=== PATIENT | female | born 1935 | race Caucasian/White ===

== ENCOUNTER 2017-10-12 12:14 | Inpatient (IN) | payer OTHER ==
[~2017-10-12] VITALS: Ht 165.1 cm; Wt 67.9 kg
[~2017-10-12 12:14] MED LIST: ASCO500T11 PO; ASPI-498 OR; ATOR20TA50 PO; CIPR-187 PO; FURO20TA3 PO
[2017-10-12 13:15] LABS: Red Cell Distribution Width 18.2 % (11.8-14.3)
[2017-10-12 13:24] LABS: Hematocrit 40.1 % (36.0-46.0); Hemoglobin 12.9 g/dL (12.2-16.2); Mean Corpuscular Hemoglobin 26.9 pg (28.0-32.0); Mean Corpuscular Hgb Conc. 32.1 g/dL (32.0-36.0); Mean Corpuscular Volume 83.7 fL (80.0-100.0); Platelet Count (auto) 307 10^3/uL (140-450); Red Blood Cells 4.79 10^6/uL (4.0-5.20); White Blood Cell 16.7 10^3/uL (4.4-10.8)
[2017-10-12 13:32] LABS: Alanine Aminotransferase 24 U/L (13-56); Albumin 2.6 g/dL (3.4-5.0); Anion Gap 11 (5-15); Aspartate Aminotransferase 30 U/L (15-37); BUN/Creatinine Ratio 30.6; Blood Urea Nitrogen 34 mg/dL (7-18); Calcium 8.7 mg/dL (8.5-10.1); Carbon Dioxide 26 mmol/L (21-32); Chloride 103 mmol/L (98-107); GFR African American 60 mL/min; GFR Non-African American 50 mL/min; Glucose 122 mg/dL (74-106); Potassium 3.1 mmol/L (3.5-5.1); Sodium 140 mmol/L (136-145)
[2017-10-12 13:34] LABS: Lactic Acid w/Reflex 2.4 mmol/L (0.4-2.0)
[2017-10-12 13:37] LABS: Alkaline Phosphatase 96 U/L (45-117); Total Protein 7.7 g/dL (6.4-8.2)
[2017-10-12 13:50] LABS: Lymphocytes % (manual) 0 (10.0-50.0)
[2017-10-12 13:51] LABS: Basophils % (manual) 0 (0.0-2.0); Blast Cells 0; Eosinophils % (manual) 0 (0-7); Metamyelocytes % 0; Myelocytes % 0; Promyelocytes % 0; Reactive Lymphocytes 0
[2017-10-12] MEDS ORDERED: AZITHROMYCIN 500MG/ 250ML 250 ML IV ONE (14:30)
[2017-10-12] MEDS ORDERED: cefTRIAXone 1GM/10ml IVPUSH 10 ML IV ONE (14:30)
[2017-10-12 14:33] LABS: Band Neutrophils % (manual) 4; Monocytes % (manual) 1 (0-12)
[2017-10-12] MEDS ORDERED: MORPHINE SULF(PF) 0.5MG/ML 10ML VIAL IV PRN (14:45)
[2017-10-12] MEDS ORDERED: LORazepam 0.5 MG TAB PO PRN (14:45)
[2017-10-12] MEDS ORDERED: ALBUTEROL SULF 2.5 MG/0.5ML(0.5%) NEB SOLN NEB PRN (14:45)
[2017-10-12] MEDS ORDERED: MORPHINE SULFATE 8mg/ml INJ SDV IV PRN (14:45)
[2017-10-12] MEDS ORDERED: NITROGLYCERIN 0.4 MG SL TAB SL PRN (14:45)
[2017-10-12] MEDS ORDERED: TEMAZEPAM 15 MG CAP PO PRN (14:45)
[2017-10-12] MEDS ORDERED: PROMETHAZINE HCL 25 MG/ML 1ML IV PRN (14:45)
[2017-10-12] MEDS ORDERED: LACTULOSE 20Gm/30ML SOLN PO PRN (14:45)
[2017-10-12] MEDS ORDERED: ACETAMINOPHEN 500 MG TAB PO PRN (14:45)
[2017-10-12] MEDS: FUROSEMIDE 40 MG/4 ML VIAL IV SCH (15:18)
[2017-10-12] MEDS: CARVEDILOL 3.125 MG TAB PO SCH ×2 (15:20→21:49)
[2017-10-12] MEDS: POTASSIUM CHL 20 Meq TABLET PO SCH (15:20)
[2017-10-12] MEDS: ENALAPRIL MALEATE 2.5 MG TAB PO SCH (15:29)
[2017-10-12 16:20] LABS: INR 1.08 (0.9-1.15); Prothrombin Time 11.5 sec (9.27-12.13)
[2017-10-12 16:42] LABS: Urine Bacteria FEW /hpf (None Seen); Urine Blood Negative /uL (Negative); Urine Specific Gravity 1.016 (1.001-1.035); Urine WBC 11 /hpf (0 - 5)
[2017-10-12] MEDS: IPRATROPIUM BROM 0.5 MG/2.5ML INH SOL NEB SCH (19:02)
[2017-10-12] MEDS: ALBUTEROL SULF 2.5 MG/0.5ML(0.5%) NEB SOLN NEB SCH (19:02)
[2017-10-12 20:00] VITALS: BP 128/52
[2017-10-12] MEDS: ATORVASTATIN 20 MG TAB PO SCH (21:46)
[2017-10-12 22:12] VITALS: BP 136/65
[2017-10-12 22:41] VITALS: BP 128/52
[2017-10-13] MEDS: IPRATROPIUM BROM 0.5 MG/2.5ML INH SOL NEB SCH ×4 (00:17→19:33)
[2017-10-13] MEDS: ALBUTEROL SULF 2.5 MG/0.5ML(0.5%) NEB SOLN NEB SCH ×4 (00:18→19:33)
[2017-10-13 04:55] VITALS: BP 109/55
[2017-10-13 07:45] LABS: Basophils # (auto) 0 uL; Eosinophils # (auto) 0.2 uL; Lymphocytes # (auto) 0.7 uL; Neutrophils % (auto) 86.2 % (37.0-80.0)
[2017-10-13 07:48] LABS: Basophils % (auto) 0.2 % (0.0-2.0); Eosinophils % (auto) 1.5 % (0.0-7.0); Hematocrit 36.7 % (36.0-46.0); Lymphocytes % (auto) 6.6 % (10.0-50.0); Mean Corpuscular Hemoglobin 26.2 pg (28.0-32.0); Mean Corpuscular Hgb Conc. 32.6 g/dL (32.0-36.0); Mean Corpuscular Volume 80.4 fL (80.0-100.0); Monocytes # (auto) 0.6 uL; Monocytes % (auto) 5.5 % (0.0-12.0); Neutrophils # (auto) 9.4 uL; Platelet Count (auto) 332 10^3/uL (140-450); Red Blood Cells 4.56 10^6/uL (4.0-5.20); Red Cell Distribution Width 17.5 % (11.8-14.3)
[2017-10-13 08:18] LABS: Albumin 2.3 g/dL (3.4-5.0); BUN/Creatinine Ratio 35.8; Bilirubin, Total 0.8 mg/dL (0.2-1.0); Calcium 8.7 mg/dL (8.5-10.1); Potassium 3.6 mmol/L (3.5-5.1); Total Protein 6.9 g/dL (6.4-8.2)
[2017-10-13] MEDS: cefTRIAXone 1GM/10ml IVPUSH 10 ML IV SCH (09:00)
[2017-10-13 09:04] VITALS: BP 98/50
[2017-10-13] MEDS: AZITHROMYCIN 500MG/ 250ML 250 ML IV SCH (10:00)
[2017-10-13] MEDS: CARVEDILOL 3.125 MG TAB PO SCH ×2 (10:00→22:42)
[2017-10-13] MEDS: POTASSIUM CHL 20 Meq TABLET PO SCH (10:00)
[2017-10-13] MEDS: FUROSEMIDE 40 MG/4 ML VIAL IV SCH (10:00)
[2017-10-13] MEDS: PANTOPRAZOLE 40 MG TAB PO SCH (10:00)
[2017-10-13] MEDS: ASCORBIC ACID 500 MG TAB PO SCH (10:00)
[2017-10-13] MEDS: ENALAPRIL MALEATE 2.5 MG TAB PO SCH (10:00)
[2017-10-13 13:14] VITALS: BP 109/50
[2017-10-13] MEDS: guaiFENesin 200 MG/10 ML UD GT PRN (14:34)
[2017-10-13 17:56] VITALS: BP 120/53
[2017-10-13 22:00] VITALS: BP 114/51
[2017-10-13] MEDS: ATORVASTATIN 20 MG TAB PO SCH (22:41)
[2017-10-14] MEDS: IPRATROPIUM BROM 0.5 MG/2.5ML INH SOL NEB SCH ×4 (01:14→18:24)
[2017-10-14] MEDS: ALBUTEROL SULF 2.5 MG/0.5ML(0.5%) NEB SOLN NEB SCH ×4 (01:14→18:23)
[2017-10-14 06:43] VITALS: BP 130/50
[2017-10-14 08:03] LABS: Basophils # (auto) 0 uL; Eosinophils # (auto) 0.3 uL
[2017-10-14 08:07] LABS: Basophils % (auto) 0.4 % (0.0-2.0); Eosinophils % (auto) 3.9 % (0.0-7.0); Hematocrit 36.2 % (36.0-46.0); Lymphocytes # (auto) 0.9 uL; Lymphocytes % (auto) 10.6 % (10.0-50.0); Mean Corpuscular Hemoglobin 26.7 pg (28.0-32.0); Mean Corpuscular Volume 80.8 fL (80.0-100.0); Monocytes # (auto) 0.7 uL; Monocytes % (auto) 8.4 % (0.0-12.0); Neutrophils # (auto) 6.5 uL; Neutrophils % (auto) 76.7 % (37.0-80.0); Platelet Count (auto) 311 10^3/uL (140-450); Red Blood Cells 4.48 10^6/uL (4.0-5.20); Red Cell Distribution Width 17.5 % (11.8-14.3); White Blood Cell 8.4 10^3/uL (4.4-10.8)
[2017-10-14 08:23] LABS: BUN/Creatinine Ratio 31.3; Calcium 8.5 mg/dL (8.5-10.1); Magnesium 2.7 mg/dL (1.6-2.6); Potassium 4.3 mmol/L (3.5-5.1)
[2017-10-14 09:00] VITALS: BP 123/62
[2017-10-14] MEDS: cefTRIAXone 1GM/10ml IVPUSH 10 ML IV SCH (09:51)
[2017-10-14] MEDS: POTASSIUM CHL 20 Meq TABLET PO SCH (11:58)
[2017-10-14] MEDS: CARVEDILOL 3.125 MG TAB PO SCH ×3 (11:58→22:34)
[2017-10-14] MEDS: FUROSEMIDE 40 MG/4 ML VIAL IV SCH (11:58)
[2017-10-14] MEDS: AZITHROMYCIN 500MG/ 250ML 250 ML IV SCH (11:58)
[2017-10-14] MEDS: ASCORBIC ACID 500 MG TAB PO SCH (11:59)
[2017-10-14] MEDS: ENALAPRIL MALEATE 2.5 MG TAB PO SCH (11:59)
[2017-10-14] MEDS: PANTOPRAZOLE 40 MG TAB PO SCH (11:59)
[2017-10-14 13:00] VITALS: BP 116/54
[2017-10-14] MEDS ORDERED: ENOXAPARIN SOD 40 MG/0.4 ML SYRINGE SC SCH (14:15)
[2017-10-14 17:00] VITALS: BP 121/51
[2017-10-14 22:02] VITALS: BP 139/64
[2017-10-14] MEDS: ATORVASTATIN 20 MG TAB PO SCH (22:33)
[2017-10-15] MEDS: IPRATROPIUM BROM 0.5 MG/2.5ML INH SOL NEB SCH ×5 (00:15→23:11)
[2017-10-15] MEDS: ALBUTEROL SULF 2.5 MG/0.5ML(0.5%) NEB SOLN NEB SCH ×5 (00:15→23:11)
[2017-10-15 05:09] VITALS: BP 131/58
[2017-10-15 08:29] VITALS: BP 129/66
[2017-10-15] MEDS: CARVEDILOL 3.125 MG TAB PO SCH ×2 (10:00→22:11)
[2017-10-15] MEDS: ASCORBIC ACID 500 MG TAB PO SCH (11:23)
[2017-10-15] MEDS: FUROSEMIDE 40 MG/4 ML VIAL IV SCH (11:23)
[2017-10-15] MEDS: PANTOPRAZOLE 40 MG TAB PO SCH (11:23)
[2017-10-15] MEDS: cefTRIAXone 1GM/10ml IVPUSH 10 ML IV SCH (11:23)
[2017-10-15] MEDS: ENOXAPARIN SOD 40 MG/0.4 ML SYRINGE SC SCH (11:25)
[2017-10-15] MEDS: ENALAPRIL MALEATE 2.5 MG TAB PO SCH (11:25)
[2017-10-15] MEDS: POTASSIUM CHL 20 Meq TABLET PO SCH (11:25)
[2017-10-15] MEDS: AZITHROMYCIN 500MG/ 250ML 250 ML IV SCH (11:26)
[2017-10-15 11:56] VITALS: BP 126/66
[2017-10-15 17:10] VITALS: BP 120/69
[2017-10-15 21:33] VITALS: BP 120/69
[2017-10-15 21:48] VITALS: BP 110/57
[2017-10-15] MEDS: ATORVASTATIN 20 MG TAB PO SCH (22:11)
[2017-10-16 05:31] VITALS: BP 111/65
[2017-10-16] MEDS: ALBUTEROL SULF 2.5 MG/0.5ML(0.5%) NEB SOLN NEB SCH ×4 (07:04→18:51)
[2017-10-16] MEDS: IPRATROPIUM BROM 0.5 MG/2.5ML INH SOL NEB SCH ×4 (07:04→18:51)
[2017-10-16 07:20] LABS: Partial Thromboplastin Time 26.1 sec (23.78-33.04); Prothrombin Time 10.7 sec (9.27-12.13)
[2017-10-16] MEDS ORDERED: ADENOSINE 52 MG in GIVE UN-DILUTED 0 ML IV ONE (08:45)
[2017-10-16 09:00] VITALS: BP 117/55
[2017-10-16 09:13] VITALS: BP 120/51
[2017-10-16] MEDS: ENOXAPARIN SOD 40 MG/0.4 ML SYRINGE SC SCH (10:00)
[2017-10-16] MEDS: cefTRIAXone 1GM/10ml IVPUSH 10 ML IV SCH (10:55)
[2017-10-16] MEDS: AZITHROMYCIN 500MG/ 250ML 250 ML IV SCH (10:56)
[2017-10-16] MEDS: POTASSIUM CHL 20 Meq TABLET PO SCH (10:56)
[2017-10-16] MEDS: FUROSEMIDE 40 MG/4 ML VIAL IV SCH (10:56)
[2017-10-16] MEDS: CARVEDILOL 3.125 MG TAB PO SCH ×2 (10:57→23:06)
[2017-10-16] MEDS: PANTOPRAZOLE 40 MG TAB PO SCH (10:57)
[2017-10-16] MEDS: ENALAPRIL MALEATE 2.5 MG TAB PO SCH (10:58)
[2017-10-16] MEDS: ASCORBIC ACID 500 MG TAB PO SCH (10:58)
[2017-10-16] MEDS ORDERED: TETRACAINE 1% INJ 2 ML VIAL IJ ONE (11:37)
[2017-10-16] MEDS ORDERED: fentaNYL CITRATE 100 MCG/2 ML VL ONE (12:00)
[2017-10-16] MEDS ORDERED: MIDAZOLAM HCL 1MG/1ML-2 ML VIAL ONE (12:00)
[2017-10-16] MEDS ORDERED: ROPIVACAINE 0.5% (5MG/ML) 20ML AMPULE IJ ONE (12:02)
[2017-10-16] MEDS ORDERED: PROPOFOL 10 MG/ML 20 ML IV ONE (12:02)
[2017-10-16] MEDS ORDERED: DEXAMETHASONE SOD PHOS 10MG/1ML VIAL INJ ONE (12:02)
[2017-10-16] MEDS ORDERED: LIDOCAINE W/ EPINEPHRINE 2% INJ 20ML VIAL ONE (12:02)
[2017-10-16] MEDS ORDERED: KETAMINE HCL 1 ML ONE (12:22)
[2017-10-16] MEDS ORDERED: PHENYLEPHRINE HCL 10 MG/ML VL ONE (12:58)
[2017-10-16] MEDS ORDERED: MIDAZOLAM HCL 1MG/1ML-2 ML VIAL IV PRN (13:45)
[2017-10-16] MEDS ORDERED: ePHEDrine SULFATE 50 MG/ML AMP IV PRN (13:45)
[2017-10-16] MEDS ORDERED: KETOROLAC TROMETH 30 MG/ML 1ML VIAL IV ONE (13:45)
[2017-10-16] MEDS ORDERED: MORPHINE SULFATE 8mg/ml INJ SDV IV PRN (13:45)
[2017-10-16] MEDS ORDERED: LABETALOL HCL 5 MG/ML 4ML SYRINGE IV PRN (13:45)
[2017-10-16] MEDS ORDERED: ONDANSETRON HCL 4 MG/2 ML VIAL IV ONE (13:45)
[2017-10-16] MEDS: ceFAZolin 1GM/50ML 50 ML IV SCH ×2 (15:00→23:07)
[2017-10-16 17:00] VITALS: BP 88/48
[2017-10-16 22:00] VITALS: BP 89/48
[2017-10-16] MEDS: ATORVASTATIN 20 MG TAB PO SCH (23:06)
[2017-10-16] MEDS: HYDROcodone-ACET 5/325MG TAB PO PRN (23:07)
[2017-10-17] VITALS (7 sets, daily range): BP systolic 84–110; BP diastolic 43–54
[2017-10-17] MEDS: ALBUTEROL SULF 2.5 MG/0.5ML(0.5%) NEB SOLN NEB SCH ×4 (00:17→18:35)
[2017-10-17] MEDS: IPRATROPIUM BROM 0.5 MG/2.5ML INH SOL NEB SCH ×4 (00:17→18:35)
[2017-10-17] MEDS: ceFAZolin 1GM/50ML 50 ML IV SCH ×3 (06:18→22:55)
[2017-10-17 06:50] LABS: Basophils # (auto) 0 uL; Eosinophils # (auto) 0 uL; Lymphocytes # (auto) 0.8 uL; Mean Corpuscular Hgb Conc. 32.9 g/dL (32.0-36.0); Monocytes # (auto) 0.8 uL; Monocytes % (auto) 7.8 % (0.0-12.0); White Blood Cell 10.3 10^3/uL (4.4-10.8)
[2017-10-17 06:53] LABS: Basophils % (auto) 0.1 % (0.0-2.0); Hematocrit 37.6 % (36.0-46.0); Hemoglobin 12.4 g/dL (12.2-16.2); Lymphocytes % (auto) 7.9 % (10.0-50.0); Mean Corpuscular Hemoglobin 26.7 pg (28.0-32.0); Mean Corpuscular Volume 81.2 fL (80.0-100.0); Neutrophils # (auto) 8.6 uL; Neutrophils % (auto) 84.2 % (37.0-80.0); Platelet Count (auto) 351 10^3/uL (140-450); Red Blood Cells 4.63 10^6/uL (4.0-5.20); Red Cell Distribution Width 16.6 % (11.8-14.3)
[2017-10-17 07:04] LABS: BUN/Creatinine Ratio 42.3; Calcium 8.5 mg/dL (8.5-10.1); Potassium 5.2 mmol/L (3.5-5.1)
[2017-10-17] MEDS: HYDROcodone-ACET 5/325MG TAB PO PRN ×2 (09:56→21:46)
[2017-10-17] MEDS: PANTOPRAZOLE 40 MG TAB PO SCH (09:56)
[2017-10-17] MEDS: ASCORBIC ACID 500 MG TAB PO SCH (09:56)
[2017-10-17] MEDS: ENOXAPARIN SOD 40 MG/0.4 ML SYRINGE SC SCH (09:57)
[2017-10-17] MEDS: CARVEDILOL 3.125 MG TAB PO SCH (09:58)
[2017-10-17] MEDS: ENALAPRIL MALEATE 2.5 MG TAB PO SCH (09:58)
[2017-10-17] MEDS ORDERED: POTASSIUM CHL 10 Meq TABLET PO SCH (10:00)
[2017-10-17] MEDS ORDERED: FUROSEMIDE 20 MG/2 ML VIAL IV SCH (10:00)
[2017-10-17] MEDS ORDERED: SODIUM CHLORIDE 0.9% 250 ML IV ONE (12:30)
[2017-10-17] MEDS: ATORVASTATIN 20 MG TAB PO SCH (21:46)
[2017-10-17] MEDS: guaiFENesin 200 MG/10 ML UD GT PRN (21:47)
[2017-10-17] MEDS ORDERED: CARVEDILOL 3.125 MG TAB PO SCH (22:00)
[2017-10-18] MEDS: ALBUTEROL SULF 2.5 MG/0.5ML(0.5%) NEB SOLN NEB SCH ×4 (00:21→19:13)
[2017-10-18] MEDS: IPRATROPIUM BROM 0.5 MG/2.5ML INH SOL NEB SCH ×4 (00:21→19:13)
[2017-10-18 05:08] VITALS: BP 100/44
[2017-10-18] MEDS: ceFAZolin 1GM/50ML 50 ML IV SCH (06:14)
[2017-10-18 07:23] LABS: Calcium 8.5 mg/dL (8.5-10.1); Potassium 4.7 mmol/L (3.5-5.1)
[2017-10-18 08:00] VITALS: BP 117/53
[2017-10-18 09:00] VITALS: BP 117/53
[2017-10-18 09:44] LABS: Hematocrit 34.4 % (36.0-46.0); Hemoglobin 10.9 g/dL (12.2-16.2)
[2017-10-18] MEDS: MULTIPLE VITAMINS W/ MINERALS TAB PO SCH ×2 (10:59→21:27)
[2017-10-18] MEDS: PANTOPRAZOLE 40 MG TAB PO SCH (10:59)
[2017-10-18] MEDS: ENOXAPARIN SOD 40 MG/0.4 ML SYRINGE SC SCH (11:00)
[2017-10-18] MEDS: ASCORBIC ACID 500 MG TAB PO SCH ×2 (11:00→21:28)
[2017-10-18] MEDS: BOOST PLUS 8 ounce PO SCH ×2 (11:04→21:27)
[2017-10-18 13:00] VITALS: BP 122/53
[2017-10-18 17:00] VITALS: BP 124/50
[2017-10-18] MEDS: IBUPROFEN 600 MG TAB PO SCH (18:20)
[2017-10-18] MEDS: ATORVASTATIN 20 MG TAB PO SCH (21:27)
[2017-10-18] MEDS: HYDROcodone-ACET 5/325MG TAB PO PRN (21:28)
[2017-10-18 22:00] VITALS: BP 95/43
[2017-10-19] VITALS (7 sets, daily range): BP systolic 104–116; BP diastolic 42–98
[2017-10-19] MEDS: IPRATROPIUM BROM 0.5 MG/2.5ML INH SOL NEB SCH ×4 (01:19→19:32)
[2017-10-19] MEDS: ALBUTEROL SULF 2.5 MG/0.5ML(0.5%) NEB SOLN NEB SCH ×4 (01:19→19:32)
[2017-10-19 08:15] LABS: Hematocrit 33.6 % (36.0-46.0); Hemoglobin 10.8 g/dL (12.2-16.2)
[2017-10-19] MEDS: IBUPROFEN 600 MG TAB PO SCH ×2 (10:00→22:23)
[2017-10-19] MEDS: ASCORBIC ACID 500 MG TAB PO SCH ×2 (10:16→22:23)
[2017-10-19] MEDS: PANTOPRAZOLE 40 MG TAB PO SCH (10:16)
[2017-10-19] MEDS: ENOXAPARIN SOD 40 MG/0.4 ML SYRINGE SC SCH (10:17)
[2017-10-19] MEDS: MULTIPLE VITAMINS W/ MINERALS TAB PO SCH (10:17)
[2017-10-19] MEDS: BOOST PLUS 8 ounce PO SCH ×2 (10:18→22:23)
[2017-10-19] MEDS: HYDROcodone-ACET 5/325MG TAB PO PRN (10:24)
[2017-10-19] MEDS ORDERED: TEMAZEPAM 15 MG CAP PO PRN (14:15)
[2017-10-19] MEDS: ATORVASTATIN 20 MG TAB PO SCH (22:23)
[2017-10-20 04:55] VITALS: BP 113/45
[2017-10-20] MEDS: ALBUTEROL SULF 2.5 MG/0.5ML(0.5%) NEB SOLN NEB SCH ×4 (06:49→19:05)
[2017-10-20] MEDS: IPRATROPIUM BROM 0.5 MG/2.5ML INH SOL NEB SCH ×4 (06:49→19:04)
[2017-10-20 08:00] VITALS: BP 85/45
[2017-10-20 08:43] VITALS: BP 115/42
[2017-10-20] MEDS: BOOST PLUS 8 ounce PO SCH (10:00)
[2017-10-20] MEDS: IBUPROFEN 600 MG TAB PO SCH (11:43)
[2017-10-20] MEDS: ASCORBIC ACID 500 MG TAB PO SCH (11:44)
[2017-10-20] MEDS: PANTOPRAZOLE 40 MG TAB PO SCH (11:44)
[2017-10-20] MEDS: ENOXAPARIN SOD 40 MG/0.4 ML SYRINGE SC SCH (11:44)
[2017-10-20] MEDS: MULTIPLE VITAMINS W/ MINERALS TAB PO SCH (11:44)
[2017-10-20 13:15] VITALS: BP 112/41
[2017-10-20 17:00] VITALS: BP 103/41
[2017-10-20 17:04] VITALS: BP 103/52
== END 2017-10-20 20:21 | disposition home or self-care (01) | DRG 469 ==
LOC: ER 12:14 → EDBD 12:14 → TELE 12:15 → TELE-CENTR 20:00
PROVIDERS: ADMIT Internal Medicine; ATTEND Internal Medicine
PROC: 0MBM0ZZ Excision of Left Hip Bursa and Ligament, Open Approach (ICD-10-PCS; 2017-10-16)
PROC: 0SRS0JZ Replacement of Left Hip Joint, Femoral Surface with Synthetic Substitute, Open Approach (ICD-10-PCS; principal; 2017-10-16 12:22)
DX: M80.052A Age-related osteoporosis with current pathological fracture, left femur, initial encounter for fracture (principal); I50.33 Acute on chronic diastolic (congestive) heart failure; J18.9 Pneumonia, unspecified organism; N39.0 Urinary tract infection, site not specified; I13.0 Hypertensive heart and chronic kidney disease with heart failure and stage 1 through stage 4 chronic kidney disease, or unspecified chronic kidney disease; N17.9 Acute kidney failure, unspecified; I25.10 Atherosclerotic heart disease of native coronary artery without angina pectoris; N18.2 Chronic kidney disease, stage 2 (mild); F03.90 Unspecified dementia, unspecified severity, without behavioral disturbance, psychotic disturbance, mood disturbance, and anxiety; E87.6 Hypokalemia; E78.5 Hyperlipidemia, unspecified; I95.89 Other hypotension; Z87.01 Personal history of pneumonia (recurrent); Z91.81 History of falling; Z95.1 Presence of aortocoronary bypass graft
CPT/HCPCS: 36415; 36600; 71045; 73501; 73590; 78452; 80048; 80053; 80061; 81001; 82550; 82805; 82962; 83605; 83735; 83880; 84443; 84484; 85007; 85014; 85018; 85025; 85027; 85610; 85730; 86850; 86900; 86901; 87040; 87086; 93005; 93017; 93306; 94640; 96374; 96375; 97110; 97530; A4565; J0153; J0690; J1100; J2250; J2704